=== PATIENT | male | born 1935 | race Caucasian/White ===

== ENCOUNTER 2017-08-17 18:25 | Inpatient (IN) | payer MEDICARE ==
[~2017-08-17] VITALS: Ht 182.9 cm; Wt 74.4 kg
[2017-08-17 18:31] VITALS: BP 116/63; PULSE 78; RESP 19; TEMP 98.5; O2SAT 98
[2017-08-17] MEDS ORDERED: NORV2.5T PO (18:35)
[2017-08-17] MEDS ORDERED: OMEG100046 PO (18:35)
[2017-08-17] MEDS ORDERED: ATOR10TA15 PO (18:35)
[2017-08-17] MEDS ORDERED: ASPI-516 PO (18:35)
[2017-08-17] MEDS ORDERED: LISI20TA PO (18:35)
[2017-08-17 18:39] VITALS: BP 116/63; O2SAT 96
--- NOTE | 2017-08-17 18:42 | PD ---
HPI Chief Complaint: Suicide Ideation/Attempt Time Seen by Provider: 18:35 Travel History International Travel<30 days: No Contact w/Intl Traveler<30days: No Traveled to known affect area: No History of Present Illness HPI 82-year-old male with PMH of HTN, CAD status post pacemaker insertion presents to the ED via EMS under Kaye act for evaluation of suicidal ideation. According to the Kaye act paper work the patient made several wounds to his abdomen with a kitchen knife after an argument with his [id number]. On arrival the patient states that he has had "a lot" to drink today. He states that he had an argument with his [id number] and he endorses using a kitchen knife to make several small wounds in his abdominal skin. He denies suicidal or homicidal ideation. He denies psychiatric history, previous psychiatric hospitalization or previous suicide attempt. He denies somatic complaints. He is intoxicated but cooperative and answers questions appropriately. It is noted that the patient was tasered after he refused to drop the knife when the police arrived on scene. EMS showed me a picture of the knife which was less than a finger's width wide, non-serrated. PFSH Social History Tobacco Use: No Allergies-Medications (Allergen,Severity, Reaction): Coded Allergies: No Known Allergies (Verified Allergy, Unknown, 08/17/17) Reported Meds & Prescriptions Reported Meds & Active Scripts Active Reported Fish Oil 1,000 mg Softgel ([place]-3/Dha/Epa/Fish Oil) 1,000 Mg (120 Mg-180 Mg) Capsule 1 Tab PO DAILY Aspirin 81 Mg Chew 81 Mg PO DAILY Norvasc (Amlodipine Besylate) 2.5 Mg Tab 2.5 Mg PO DAILY Atorvastatin (Atorvastatin Calcium) 10 Mg Tab 10 Mg PO HS Lisinopril-Hctz 20-12.5 Mg Tab 1 Tab PO DAILY Review of Systems Except as stated in HPI: all other systems reviewed are Neg Physical Exam Narrative GENERAL: Well-nourished, well-developed, intoxicated white male in no acute distress. PSYCHIATRIC: No delusional thought processes. No hallucinations. Cooperative. Calm. SKIN: Focused skin assessment warm/dry. Multiple very superficial pinprick wounds of the abdomen. The largest is 0.25 cm wide and penetrates to the depth of 0.15 cm. Pacemaker in the left chest. Surgical wound well-healed without signs of infection. HEAD: Normocephalic. Atraumatic. EYES: No scleral icterus. No injection or drainage. PERRLA EOMI. NECK: Supple, trachea midline. No JVD or lymphadenopathy. CARDIOVASCULAR: Regular rate and rhythm without murmurs, gallops, or rubs. RESPIRATORY: Breath sounds clear and equal bilaterally. No accessory muscle use. GASTROINTESTINAL: Abdomen soft, non-tender, nondistended. Active bowel sounds. MUSCULOSKELETAL: No cyanosis, or edema. Moves extremities spontaneously. BACK: Nontender without obvious deformity. No CVA tenderness. Data Data Last Documented VS Vital Signs Date Time Temp Pulse Resp B/P (MAP) Pulse Ox O2 Delivery O2 Flow Rate FiO2 08/17/17 18:39 116/63 (80) 96 08/17/17 18:31 98.5 78 19 Orders Orders Complete Blood Count With Diff (08/17/17 18:36) Comprehensive Metabolic Panel (08/17/17 18:36) Thyroid Stimulating Hormone (08/17/17 18:36) Urinalysis - C+S If Indicated (08/17/17 18:36) Electrocardiogram (08/17/17 18:36) Oximetry (08/17/17 18:36) Iv Access Insert/Monitor (08/17/17 18:36) Ecg Monitoring (08/17/17 18:36) Psych Screen (08/17/17 18:36) Drug Screen, Random Urine (08/17/17 18:36) Alcohol (Ethanol) (08/17/17 18:36) Tetanus/Diphtheria Tox Adult (Tetanus/Di (08/17/17 18:45) Labs Laboratory Tests Test 08/17/17 18:40 08/17/17 18:45 08/17/17 19:40 Blood Urea Nitrogen 11 MG/DL Creatinine 0.80 MG/DL Random Glucose 91 MG/DL Total Protein 6.4 GM/DL Albumin 3.0 GM/DL Calcium Level 8.5 MG/DL Alkaline Phosphatase 104 U/L Aspartate Amino Transf (AST/SGOT) 33 U/L Alanine Aminotransferase (ALT/SGPT) 20 U/L Total Bilirubin 1.4 MG/DL Sodium Level 135 MEQ/L Potassium Level 4.7 MEQ/L Chloride Level 103 MEQ/L Carbon Dioxide Level 25.7 MEQ/L Anion Gap 6 MEQ/L Estimat Glomerular Filtration Rate 93 ML/MIN Thyroid Stimulating Hormone 3rd Gen 3.310 uIU/ML Ethyl Alcohol Level 185 MG/DL Urine Color LIGHT-YELLOW Urine Turbidity CLEAR Urine pH 5.5 Urine Specific [place] 1.005 Urine Protein NEG mg/dL Urine Glucose (UA) NEG mg/dL Urine Ketones NEG mg/dL Urine Occult Blood NEG Urine Nitrite NEG Urine Bilirubin NEG Urine Urobilinogen LESS THAN 2.0 MG/DL Urine Leukocyte Esterase NEG Urine RBC LESS THAN 1 /hpf Urine WBC 1 /hpf Urine Mucus FEW /lpf Microscopic Urinalysis Comment CULT NOT INDICATED Urine Opiates Screen NEG Urine Barbiturates Screen NEG Urine Amphetamines Screen NEG Urine Benzodiazepines Screen NEG Urine Cocaine Screen NEG Urine Cannabinoids Screen NEG White Blood Count 11.1 TH/MM3 Red Blood Count 4.97 MIL/MM3 Hemoglobin 14.6 GM/DL Hematocrit 42.7 % Mean Corpuscular Volume 85.8 FL Mean Corpuscular Hemoglobin 29.4 PG Mean Corpuscular Hemoglobin Concent 34.3 % Red Cell Distribution Width 13.8 % Platelet Count 193 TH/MM3 Mean Platelet Volume 7.9 FL Neutrophils (%) (Auto) 82.8 % Lymphocytes (%) (Auto) 8.0 % Monocytes (%) (Auto) 7.2 % Eosinophils (%) (Auto) 1.1 % Basophils (%) (Auto) 0.9 % Neutrophils # (Auto) 9.2 TH/MM3 Lymphocytes # (Auto) 0.9 TH/MM3 Monocytes # (Auto) 0.8 TH/MM3 Eosinophils # (Auto) 0.1 TH/MM3 Basophils # (Auto) 0.1 TH/MM3 CBC Comment DIFF FINAL Differential Comment MDM Medical Decision Making Medical Screen Exam Complete: Yes Emergency Medical Condition: Yes Differential Diagnosis Substance-induced mood disorder versus acute alcohol intoxication versus need for tetanus immunization versus inflicted abdominal wound versus other Narrative Course 82-year-old male with PMH of HTN, CAD s/p pacemaker insertion presents to the ED via EMS under Kaye act for evaluation of suicidal ideation. According to the Kaye act paper work the patient made several wounds to his abdomen with a kitchen knife after an argument with his [id number]. On arrival the patient states that he has had "a lot" to drink today. He denies SI, HI. He denies psychiatric history, previous psychiatric hospitalization or previous suicide attempt. He denies somatic complaints. He is intoxicated but cooperative and answers questions appropriately. He was tasered by [employer] on scene after he refused to drop the knife. EMS showed me a picture of the knife which was less than a finger's width wide, non-serrated. Vitals reviewed. On exam there are multiple pinpoint superficial lacerations on the abdominal wall. The largest of these is 0.20 cm. Exam otherwise unremarkable. The wounds were cleaned and dressed by the nursing staff. Tetanus immunization was updated. EKG rate 69, sinus rhythm with first-degree AV block. Normal axis. No acute ST changes. Reviewed by Dr. Dasilva. Tox screen negative. Alcohol 185 UA: No culture indicated No concerning abnormalities of the CBC or CMP. The patient is stable and medically cleared for psychiatric evaluation. Virginia Evans Aug 17, 2017 18:42
[2017-08-17] MEDS ORDERED: TETANUS/DIPHTHERIA TOXOID ADULT 0.5 ML VIAL IM ONE (18:45)
[2017-08-17 19:07] LABS: BILIRUBIN, URINE NEG (NEG); BLOOD, URINE NEG (NEG); GLUCOSE,URINE NEG (NEG); KETONE, URINE NEG (NEG); MUCUS URINE FEW /lpf (OCC); NITRITE,URINE NEG (NEG); PH, URINE 5.5 (5.0-8.5); URINE COLOR LIGHT-YELLOW (YELLW/STRAW); URINE LEUKOCYTE ESTERASE NEG (NEG)
[2017-08-17 19:21] LABS: ALT (GPT) 20 U/L (12-78)
[2017-08-17 19:29] LABS: AST (GOT) 33 U/L (15-37); BICARBONATE 25.7 MEQ/L (21.0-32.0); BLOOD UREA NITROGEN 11 MG/DL (7-18); CALCIUM 8.5 MG/DL (8.5-10.1); CHLORIDE 103 MEQ/L (98-107); GLOMERULAR FILTRATION RATE 93 ML/MIN (>89); GLUCOSE,RANDOM 91 MG/DL (74-106); SODIUM (NA) 135 MEQ/L (136-145)
[2017-08-17 19:31] LABS: ALKALINE PHOSPHATASE 104 U/L (45-117); TOTAL BILIRUBIN ADULT 1.4 MG/DL (0.2-1.0); TOTAL PROTEIN 6.4 GM/DL (6.4-8.2)
[2017-08-17 20:30] LABS: AUTOMATED NEUTROPHIL # 9.2 TH/MM3 (1.8-7.7); BASOPHIL # 0.1 TH/MM3 (0-0.2); BASOPHIL % 0.9 % (0.0-2.0); EOSINOPHIL # 0.1 TH/MM3 (0-0.4); EOSINOPHIL % 1.1 % (0.0-4.0); HEMATOCRIT 42.7 % (39.0-51.0); HEMOGLOBIN 14.6 GM/DL (13.0-17.0); LYMPHOCYTE # 0.9 TH/MM3 (1.0-4.8); MEAN CELL VOLUME 85.8 FL (80.0-100.0); MEAN CORPUSCULAR HEMOGLOBIN 29.4 PG (27.0-34.0); MEAN CORPUSCULAR HGB CONC 34.3 % (32.0-36.0); MEAN PLATELET VOLUME 7.9 FL (7.0-11.0); MONO % 7.2 % (0.0-8.0); MONOCYTE # 0.8 TH/MM3 (0-0.9); NEUT % 82.8 % (16.0-70.0); PLATELET COUNT 193 TH/MM3 (150-450); RED BLOOD COUNT 4.97 MIL/MM3 (4.50-5.90); RED CELL DISTRIBUTION WIDTH 13.8 % (11.6-17.2); WHITE BLOOD COUNT 11.1 TH/MM3 (4.0-11.0)
--- NOTE | 2017-08-17 21:08 | EKG ---
Date Performed: 08/17/2017 Time Performed: 18:37:51 PTAGE: 82 years EKG: Sinus rhythm WITH SINUS ARRHYTHMIA WITH FIRST DEGREE AV BLOCK SEPTAL MYOCARDIAL INFARCTION ABNORMAL ECG NO PREVIOUS TRACING DOCTOR: Josue Tinoco Interpretating Date/Time 08/17/2017 21:06:52
[2017-08-17] MEDS ORDERED: ACETAMINOPHEN 325 MG TAB PO PRN (22:00)
[2017-08-17] MEDS ORDERED: MAGNESIUM HYDROXIDE SUSP 30 ML CUP PO PRN (22:00)
[2017-08-17] MEDS ORDERED: LORazepam 2 MG TAB PO PRN (22:00)
[2017-08-17] MEDS ORDERED: FLUMAZENIL 0.5 MG/5 ML VIAL IV PUSH PRN (22:00)
[2017-08-17] MEDS ORDERED: NICOTINE 21 MG/24 HR PATCH T-DERMAL PRN (22:00)
[2017-08-17] MEDS ORDERED: ALUMINUM/MAGNESIUM/SIMETH 30 ML CUP PO PRN (22:00)
[2017-08-17] MEDS ORDERED: LORazepam 2 MG/ML VIAL IV PUSH PRN ×4 (22:00)
[2017-08-17] MEDS ORDERED: LORazepam 1 MG TAB PO PRN (22:00)
[2017-08-17 23:30] VITALS: BP 141/71; PULSE 75; RESP 18; TEMP 97.7; O2SAT 96
[2017-08-18 05:40] VITALS: BP 150/71; PULSE 74; RESP 18; TEMP 97.9
[2017-08-18] MEDS: LISINOPRIL 20 MG TAB PO SCH (08:18)
[2017-08-18] MEDS: FOLIC ACID 1 MG TAB PO SCH (08:18)
[2017-08-18] MEDS: ASPIRIN 81 MG CHEW TAB PO SCH (08:18)
[2017-08-18] MEDS: THIAMINE HCL 100 MG TAB PO SCH (08:18)
[2017-08-18] MEDS: HYDROCHLOROTHIAZIDE 25 MG TAB PO SCH (08:18)
[2017-08-18] MEDS: amLODIPine BESYLATE 5 MG TAB PO SCH (08:18)
[2017-08-18] MEDS: REMOVE OLD NICODERM (NICOTINE) PATCH T-DERMAL SCH (08:19)
[2017-08-18 08:48] LABS: AUTOMATED NEUTROPHIL # 9.1 TH/MM3 (1.8-7.7); BASOPHIL # 0.1 TH/MM3 (0-0.2); BASOPHIL % 0.5 % (0.0-2.0); EOSINOPHIL # 0.1 TH/MM3 (0-0.4); EOSINOPHIL % 0.9 % (0.0-4.0); HEMATOCRIT 47.2 % (39.0-51.0); HEMOGLOBIN 16.1 GM/DL (13.0-17.0); LYMPH % 8.3 % (9.0-44.0); LYMPHOCYTE # 0.9 TH/MM3 (1.0-4.8); MEAN CELL VOLUME 85.5 FL (80.0-100.0); MEAN CORPUSCULAR HEMOGLOBIN 29.2 PG (27.0-34.0); MEAN CORPUSCULAR HGB CONC 34.1 % (32.0-36.0); MEAN PLATELET VOLUME 8.2 FL (7.0-11.0); MONO % 7.8 % (0.0-8.0); MONOCYTE # 0.9 TH/MM3 (0-0.9); NEUT % 82.5 % (16.0-70.0); PLATELET COUNT 218 TH/MM3 (150-450); RED BLOOD COUNT 5.52 MIL/MM3 (4.50-5.90); RED CELL DISTRIBUTION WIDTH 14.2 % (11.6-17.2)
[2017-08-18] MEDS ORDERED: OMEGA PO SCH (09:00)
[2017-08-18] MEDS ORDERED: FISH OIL PO SCH (09:00)
[2017-08-18] MEDS ORDERED: EPA PO SCH (09:00)
[2017-08-18] MEDS ORDERED: DHA PO SCH (09:00)
[2017-08-18] MEDS ORDERED: NON-FORMULARY DRUG (Lisinopril-Hctz 1 TAB) PO SCH (09:00)
[2017-08-18 09:25] LABS: BLOOD UREA NITROGEN 11 MG/DL (7-18); CALCIUM 9.4 MG/DL (8.5-10.1); CHLORIDE 102 MEQ/L (98-107); CHOLESTEROL 122 MG/DL (120-200); CHOLESTEROL/ HDL RATIO 1.75 RATIO; CREATININE 0.62 MG/DL (0.60-1.30); GLOMERULAR FILTRATION RATE 125 ML/MIN (>89); GLUCOSE,RANDOM 76 MG/DL (74-106); HDL CHOLESTEROL 69.4 MG/DL (40.0-60.0); LDL CHOLESTEROL 42 MG/DL (0-99); SODIUM (NA) 138 MEQ/L (136-145); TRIGLYCERIDES 52 MG/DL (42-150)
--- NOTE | 2017-08-18 09:28 | PD.CONS ---
HPI Service [facility] Hospitalists Consult Requested By Dr Paula Reason for Consult medical management Primary Care Physician Non-Staff Diagnoses: History of Present Illness 82-year-old male with PMH of HTN, CAD status post pacemaker insertion presents to the ED via EMS under Kaye act for evaluation of suicidal ideation. According to the Kaye act paper work the patient made several wounds to his abdomen with a kitchen knife after an argument with his [id number]. On arrival the patient stated that he has had "a lot" to drink. He stated that he had an argument with his [id number] and he endorses using a kitchen knife to make several small wounds in his abdominal skin. He denies suicidal or homicidal ideation. He denies psychiatric history, previous psychiatric hospitalization or previous suicide attempt. He denies somatic complaints. He is intoxicated but cooperative and answers questions appropriately. It is noted that the patient was tasered after he refused to drop the knife when the police arrived on scene. EMS showed a picture of the knife which was less than a finger's width wide, non-serrated. Patient is in the chair he appears in nad. No n/v/d/c. Had diarrhea yesterday none today. Eating well. He has no complaints at this time. Denies any cp, sob. No fever or chills. No tremors, no signs of alcohol withdrawals. Says she feel better and would like to go home. Says he will never do such a thing again. Review of Systems Except as stated in HPI: all other systems reviewed are Neg Past Family Social History Allergies: Coded Allergies: No Known Allergies (Verified Allergy, Unknown, 08/17/17) Past Medical History HTN, HLD, CAD, PM placement Past Surgical History none Reported Medications Reported Meds & Active Scripts Active Reported Fish Oil 1,000 mg Softgel ([place]-3/Dha/Epa/Fish Oil) 1,000 Mg (120 Mg-180 Mg) Capsule 1 Tab PO DAILY Aspirin 81 Mg Chew 81 Mg PO DAILY Norvasc (Amlodipine Besylate) 2.5 Mg Tab 2.5 Mg PO DAILY Atorvastatin (Atorvastatin Calcium) 10 Mg Tab 10 Mg PO HS Lisinopril-Hctz 20-12.5 Mg Tab 1 Tab PO DAILY Family History father with heart problems Social History EtOH use 3 glasses of wine daily and occasionally bears, no hard liquor No tobacco use or illicit drug use Physical Exam Vital Signs Vital Signs Date Time Temp Pulse Resp B/P (MAP) Pulse Ox O2 Delivery O2 Flow Rate FiO2 08/18/17 05:40 97.9 74 18 150/71 (97) 08/17/17 23:30 97.7 75 18 141/71 (94) 96 08/17/17 23:00 08/17/17 18:39 116/63 (80) 96 08/17/17 18:31 98.5 78 19 116/63 (80) 98 Physical Exam GENERAL: This is a well-nourished, well-developed patient, in no apparent distress. SKIN: Multiple very superficial pinprick wounds of the abdomen. The largest is 0.25 cm wide and penetrates to the depth of 0.15 cm. Pacemaker in the left chest. Surgical wound well-healed without signs of infection. HEAD: Atraumatic. Normocephalic. No temporal or scalp tenderness. EYES: Pupils equal round and reactive. Extraocular motions intact. No scleral icterus. No injection or drainage. ENT: Nose without bleeding, purulent drainage or septal hematoma. Throat without erythema, tonsillar hypertrophy or exudate. Uvula midline. Airway patent. NECK: Trachea midline. No JVD or lymphadenopathy. Supple, nontender, no meningeal signs. CARDIOVASCULAR: Regular rate and rhythm without murmurs, gallops, or rubs. RESPIRATORY: Clear to auscultation. Breath sounds equal bilaterally. No wheezes , rales, or rhonchi. GASTROINTESTINAL: Abdomen soft, non-tender, nondistended. No hepato-splenomegaly , or palpable masses. No guarding. MUSCULOSKELETAL: Extremities without clubbing, cyanosis, or edema. No joint tenderness, effusion, or edema noted. No calf tenderness. Negative Homans sign bilaterally. NEUROLOGICAL: Awake and alert. Cranial nerves II through XII intact. Motor and sensory grossly within normal limits. Five out of 5 muscle strength in all muscle groups. Normal speech. Laboratory Laboratory Tests Test 08/17/17 18:40 08/17/17 18:45 08/17/17 19:40 08/18/17 08:05 Blood Urea Nitrogen 11 Creatinine 0.80 Random Glucose 91 Total Protein 6.4 Albumin 3.0 Calcium Level 8.5 Alkaline Phosphatase 104 Aspartate Amino Transf (AST/SGOT) 33 Alanine Aminotransferase (ALT/SGPT) 20 Total Bilirubin 1.4 Sodium Level 135 Potassium Level 4.7 Chloride Level 103 Carbon Dioxide Level 25.7 Anion Gap 6 Estimat Glomerular Filtration Rate 93 Thyroid Stimulating Hormone 3rd Gen 3.310 Ethyl Alcohol Level 185 Urine Color LIGHT-YELLOW Urine Turbidity CLEAR Urine pH 5.5 Urine Specific [place] 1.005 Urine Protein NEG Urine Glucose (UA) NEG Urine Ketones NEG Urine Occult Blood NEG Urine Nitrite NEG Urine Bilirubin NEG Urine Urobilinogen LESS THAN 2.0 Urine Leukocyte Esterase NEG Urine RBC LESS THAN 1 Urine WBC 1 Urine Mucus FEW Microscopic Urinalysis Comment CULT NOT INDICATED Urine Opiates Screen NEG Urine Barbiturates Screen NEG Urine Amphetamines Screen NEG Urine Benzodiazepines Screen NEG Urine Cocaine Screen NEG Urine Cannabinoids Screen NEG White Blood Count 11.1 11.0 Red Blood Count 4.97 5.52 Hemoglobin 14.6 16.1 Hematocrit 42.7 47.2 Mean Corpuscular Volume 85.8 85.5 Mean Corpuscular Hemoglobin 29.4 29.2 Mean Corpuscular Hemoglobin Concent 34.3 34.1 Red Cell Distribution Width 13.8 14.2 Platelet Count 193 218 Mean Platelet Volume 7.9 8.2 Neutrophils (%) (Auto) 82.8 82.5 Lymphocytes (%) (Auto) 8.0 8.3 Monocytes (%) (Auto) 7.2 7.8 Eosinophils (%) (Auto) 1.1 0.9 Basophils (%) (Auto) 0.9 0.5 Neutrophils # (Auto) 9.2 9.1 Lymphocytes # (Auto) 0.9 0.9 Monocytes # (Auto) 0.8 0.9 Eosinophils # (Auto) 0.1 0.1 Basophils # (Auto) 0.1 0.1 CBC Comment DIFF FINAL DIFF FINAL Differential Comment Result Diagram: 08/18/17 0805 08/17/17 1840 Assessment and Plan Assessment and Plan 82-year-old male with PMH of HTN, CAD s/p pacemaker insertion presents to the ED via EMS under Kaye act for evaluation of suicidal ideation. According to the Kaye act paper work the patient made several wounds to his abdomen with a kitchen knife after an argument with his [id number]. On exam there are multiple pinpoint superficial lacerations on the abdominal wall. The largest of these is 0.20 cm. Tetanus immunization was updated. Suicidal attempt management per psych Multiple superficial abdominal wounds , wound care Alcohol use monitor for withdrawals CIWA protocol, MVT/thiamine /folate EKG rate 69, sinus rhythm with first-degree AV block. Normal axis. No acute ST changes. Reviewed by Dr. Dasilva. Tox screen negative. Alcohol level 185 on admission UA: No culture indicated CBC and CMP fairly normal HTN, HLD, CAD, PM placement. Stable. Continue home meds as appropriate. Monitor VS Discussed Condition With pt, nurse Cheryl Ng MD Aug 18, 2017 09:28
[2017-08-18 12:22] LABS: HEMOGLOBIN A1C 5.9 % (4.3-6.0)
--- NOTE | 2017-08-18 15:19 | HHI.HP ---
Provisional Diagnosis Admission Date Aug 17, 2017 at 21:47 [place] I. 1. Adjustment disorder with disturbance of conduct 2. Alcohol intoxication, now resolved [place] II. Deferred Certification of Person's Competence To Provide Express and Informed Consent I have personally examined Justin Lyman , a person being served at [facility] [[email or web address]] on, Aug 18, 2017 15:19. Express and informed consent means consent voluntarily given in writing, by a competent person, after sufficient explanation and disclosure of the subject matter involved to enable the person to make a knowing and willful decision without any element of force, fraud, deceit, duress, or other form of constraint or coercion. This person is 18 years of age or older, is not now known to be incompetent to consent to treatment with a guardian advocate, and does not have a health care surrogate or proxy currently making medical treatment decisions. I have found this person to be one of the following: [x] Competent to provide express and informed consent, as defined above, for voluntary admission to this facility and is competent to provide express and informed consent for treatment. He/she has the consistent capacity to make well reasoned, willful, and knowing decisions concerning his or her medical or mental health treatment. The person fully and consistently understands the purpose of the admission for examination/placement and is fully capable of personally exercising all rights assured under [place] Incompetent to provide express and informed consent to voluntary admission, and this is incompetent to provide express and informed consent to treatment. The person must be transferred to involuntary status and a petition for a guardian advocate filed with the Circuit Court. [] Refusing to provide express and informed consent to voluntary admission but is competent to provide express and informed consent for treatment. The person must be discharged or transferred to involuntary status. Form shall be completed within 24 hours of a person's arrival at the receiving facility and filed in the clinical record of each person: 1. Admitted on a voluntary basis 2. Permitted to provide express and informed consent to his/her own treatment 3. Allowed to transfer from involuntary to voluntary status 4. Prior to permitting a person to consent to his or her own treatment after having been previously found incompetent to consent to treatment. History of Present Illness Capacity: Has Capacity Psych Chief Complaint: Self-injurious behavior HPI Mr. Lyman is an 82-year-old male with no reported past psychiatric history who presents under a Kaye act by law enforcement alleging that the officer found the patient sitting on a couch holding a kitchen knife to his abdomen. Of note , the patient's alcohol level was elevated on presentation here. Reviewing the electronic medical record it appears this is patient's first visit to [facility]. Patient seen and examined with nurse. Chart reviewed. Case discussed with nursing staff. No behavioral issues noted on the unit. No suicidality or homicidality. Patient is clinically sober at the time of my evaluation. He denies any suicidal or homicidal ideation, intent or plan on direct questioning now and contracts for safety. He says that he had a little too much to drink yesterday and was trying to pay his qbrwnd-do-vow Rosalie abdalla on the cleanliness of the house. He says that in his intoxicated state he inadvertently asked if someone had spent the night with her. An argument ensued , and the patient threatened to stab himself with a knife in the context of this argument. Patient is very remorseful for making this gesture. He says that it is markedly out of character for him to behave in this way. He does admit that he consumed alcohol to excess. I can elicit no depressive or hypomanic/manic symptoms presently. He denies any audiovisual hallucinations. I can elicit no delusional beliefs. There is no evidence of any impairment in reality construction. The remainder of the psychiatric ROS is negative. The patient has no physical complaints at this time. Although the patient would like to leave the hospital today of possible, he is willing to remain overnight if necessary to arrange for safety discharge. Past psychiatric history: The patient denies a history of psychiatric diagnosis. He denies a history of inpatient or outpatient psychiatric treatment. He denies a history of suicide attempts. He denies a history of violent behavior. Family history: Patient denies a family history of serious mental illness, substance use disorder or suicide. Chemical dependency history: The patient reports that he drinks 2 beers a day. Yesterday he had 3 mixed drinks and notes that they were especially strong. He denies any history of blackouts, DTs or seizures. His longest sober time from alcohol is on the order of weeks. Social history: The patient is from [place]. He and his niyijd-il-hkv have been staying in a [place] locally on vacation. He was 10 years ago. He has 10 children, 4 grandchildren and 1 great grandchild all living in [place]. He is high school educated. 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 He served in the [employer] for 6 years. He denies any legal history. He did have a hunting rifle and a pistol, and his son has secured these. Obtained collateral information from son Zen Lyman at [phone]. He has never known his father to engage in any sort of suicidal or violent behavior. Patient has no past psychiatric history but son is aware of, nor is there any family history. Son has no particular concerns regarding the patient being on ongoing risk of harm to himself or others, although son does note that patient has been away for several weeks and so son is not aware of recent mental state. Son reports that his sister Shauna is flying down tomorrow evening to bring patient back to [place]. Endeavored to obtain collateral from daughter Shauna Harvey at [phone] and [phone]. I have left generic voicemails at both of these numbers requesting a call back. Review of Systems Except as stated in HPI: all other systems reviewed are Neg Past Family Social History Coded Allergies: No Known Allergies (Verified Allergy, Unknown, 08/17/17) Past Medical History Patient reports a history of cardiac issues and GERD. Reported Medications [place]-3/Dha/Epa/Fish Oil (Fish Oil 1,000 mg Softgel) 1,000 Mg (120 Mg-180 Mg) Capsule, 1 TAB PO DAILY 08/17/17 Aspirin (Aspirin) 81 Mg Chew, 81 MG PO DAILY, TAB 0 Refills 08/17/17 Amlodipine (Norvasc) 2.5 Mg Tab, 2.5 MG PO DAILY for Blood Pressure Management, #30 TAB 0 Refills 08/17/17 Atorvastatin (Atorvastatin) 10 Mg Tab, 10 MG PO HS for Cholesterol Management, # 30 TAB 0 Refills 08/17/17 Lisinopril-Hctz (Lisinopril-Hctz) 20-12.5 Mg Tab, 1 TAB PO DAILY for Blood Pressure Management, #30 TAB 0 Refills 08/17/17 Current Medications Medications (Trade) Dose Ordered Sig/Beba Route Start Time Stop Time Status Last Admin (Tylenol) 650 mg Q4H PRN PO 08/17/17 22:00 (Milk Of Magnesia Liq) 30 ml DAILY PRN PO 08/17/17 22:00 (Mag-Al Plus Susp Liq) 30 ml Q6H PRN PO 08/17/17 22:00 (Habitrol 21 Mg Patch.24 Hr) 1 patch DAILY PRN T-DERMAL 08/17/17 22:00 (Romazicon Inj) 0.2 mg Q1M PRN IV PUSH 08/17/17 22:00 (Ativan) 1 mg Q4H PRN PO 08/17/17 22:00 (Ativan Inj) 1 mg Q4H PRN IV PUSH 08/17/17 22:00 (Ativan) 2 mg Q2H PRN PO 08/17/17 22:00 (Ativan Inj) 2 mg Q2H PRN IV PUSH 08/17/17 22:00 (Ativan Inj) 2 mg Q1H PRN IV PUSH 08/17/17 22:00 (Ativan Inj) 2 mg Q15M PRN IV PUSH 08/17/17 22:00 (Norvasc) 2.5 mg DAILY PO 08/18/17 09:00 08/18/17 08:18 (Aspirin Chew) 81 mg DAILY PO 08/18/17 09:00 08/18/17 08:18 (Lipitor) 10 mg HS PO 08/18/17 21:00 (Vitamin B1) 100 mg DAILY PO 08/18/17 09:00 08/18/17 08:18 (Folate) 1 mg DAILY PO 08/18/17 09:00 08/18/17 08:18 (Prinivil) 20 mg DAILY PO 08/18/17 09:00 08/18/17 08:18 (Hydrodiuril) 12.5 mg DAILY PO 08/18/17 09:00 08/18/17 08:18 Miscellaneous Information 1 DAILY T-DERMAL 08/18/17 09:00 Physical Exam Physical exam completed by the hospitalist men's custom hair piece consultant. On my examination today , the patient appears to be in no acute physical distress. No motor abnormalities noted. No signs of intoxication or withdrawal noted at this time. I do see a few very superficial scratches on the patient's lower abdomen. The patient has a pacemaker in place. Labs and vitals reviewed: Vital Signs Vital Signs Date Time Temp Pulse Resp B/P (MAP) Pulse Ox O2 Delivery O2 Flow Rate FiO2 08/18/17 05:40 97.9 74 18 150/71 (97) 08/17/17 23:30 96 I/O 08/18/17 08/18/17 08/19/17 08:00 16:00 00:00 Intake Total 360 ml Balance 360 ml Lab Results Item Value Date Time White Blood Count 11.0 TH/MM3 08/18/17 0805 Hemoglobin 16.1 GM/DL 08/18/17 0805 Platelet Count 218 TH/MM3 08/18/17 0805 Sodium Level 138 MEQ/L 08/18/17 0805 Potassium Level 3.6 MEQ/L # 08/18/17 0805 Chloride Level 102 MEQ/L 08/18/17 0805 Carbon Dioxide Level 26.0 MEQ/L 08/18/17 0805 Blood Urea Nitrogen 11 MG/DL 08/18/17 0805 Creatinine 0.62 MG/DL 08/18/17 0805 Estimat Glomerular Filtration Rate 125 ML/MIN 08/18/17 0805 Random Glucose 76 MG/DL 08/18/17 0805 Aspartate Amino Transf (AST/SGOT) 33 U/L 08/17/17 1840 Alanine Aminotransferase (ALT/SGPT) 20 U/L 08/17/17 1840 Alkaline Phosphatase 104 U/L 08/17/17 1840 Thyroid Stimulating Hormone 3rd Gen 3.310 uIU/ML 08/17/17 1840 Ethyl Alcohol Level 185 MG/DL H 08/17/17 1840 Urinalysis bland. Mental Status Examination Appearance: Appropriate Consciousness: Alert Orientation: x4 Motor Activity: Normal gait Speech: Unremarkable Language: Adequate Fund of Knowledge: Adequate Attention and Concentration: Adequate Memory: Unremarkable Mood: Appropriate Affect: Appropriate Thought Process & Associations: Intact, Logical, Linear Thought Content: Appropriate Hallucination Type: None Delusion Type: None Suicidal Ideation: No Suicidal Plan: No Suicidal Intention: No Homicidal Ideation: No Homicidal Plan: No Homicidal Intention: No Insight: Adequate Judgment: Adequate Mental Status Exam Remarks MMSE 27/30. Assessment & Plan Problem List: (1) Adjustment disorder with disturbance of conduct ICD Codes: F43.24 - Adjustment disorder with disturbance of conduct (2) Alcohol intoxication ICD Codes: F10.929 - Alcohol use, unspecified with intoxication, unspecified Assessment & Plan 82-year-old male with psychiatric history as detailed above presently admitted to the inpatient psychiatric unit under a Kaye act. On my examination today, the patient reports that he self injured in the setting of an argument with his ztvxba-ta-eia while intoxicated. Now that he is clinically sober, he denies any suicidal or homicidal ideation. There is no evidence of any unstable mental illness as defined under the Kaye act in this patient at this time. He admits that his consumption of alcohol yesterday evening was excessive and is agreeable to pursuing outpatient chemical dependency evaluation and, if indicated, treatment. Main concern presently is whether there is a safe discharge plan in place. Patient does not have a garcia to the condo he was sharing with Rosalie, and it is unclear whether she is willing to accept him back at any rate. Daughter Shauna will reportedly be here tomorrow evening to have the patient return home to [place]. The patient is agreeable to remaining on the inpatient unit overnight to allow for safe discharge. I will plan to admit the patient for this purpose. Admit inpatient. Voluntary status. I will resume general medical medications. Hospitalist consult with further medication adjustments as per the hospitalist. No scheduled psychotropics at this time. CIWA scale with Ativan for the management of any withdrawal. Seizure precautions. PT eval. Falls precautions. Vitals every shift. Counselor to see. Collateral from daughter. Disposition planning. Estimated length of stay: 2-3 days. Request HC Surrog/Guard Advoc?: No Gary Paula MD Aug 18, 2017 15:19
[2017-08-18 18:12] VITALS: BP 138/64; PULSE 90; RESP 18; TEMP 97.8; O2SAT 96
[2017-08-18] MEDS ORDERED: ATORVASTATIN 10 MG TAB PO SCH (21:00)
[2017-08-19 06:00] VITALS: BP 128/71; PULSE 72; RESP 18; TEMP 97.8; O2SAT 94
[2017-08-19] MEDS: LISINOPRIL 20 MG TAB PO SCH (08:19)
[2017-08-19] MEDS: amLODIPine BESYLATE 5 MG TAB PO SCH (08:19)
[2017-08-19] MEDS: ASPIRIN 81 MG CHEW TAB PO SCH (08:19)
[2017-08-19] MEDS: THIAMINE HCL 100 MG TAB PO SCH (08:19)
[2017-08-19] MEDS: FOLIC ACID 1 MG TAB PO SCH (08:19)
[2017-08-19] MEDS: HYDROCHLOROTHIAZIDE 25 MG TAB PO SCH (08:19)
[2017-08-19] MEDS: REMOVE OLD NICODERM (NICOTINE) PATCH T-DERMAL SCH (09:00)
--- NOTE | 2017-08-19 11:31 | HHI.DS ---
Psychiatry Discharge Summary Inpatient Psychiatric care?: Yes Advance Directive: Yes Mental Health AdvanceDirective: No Health Care Proxy: No Admission Admission Date Aug 17, 2017 at 21:47 Admission Diagnosis: (1) Adjustment disorder with disturbance of conduct ICD Code: F43.24 - Adjustment disorder with disturbance of conduct (2) Alcohol intoxication ICD Code: F10.929 - Alcohol use, unspecified with intoxication, unspecified Brief History Mr. Lyman is an 82-year-old male with no reported past psychiatric history who presents under a Kaye act by law enforcement alleging that the officer found the patient sitting on a couch holding a kitchen knife to his abdomen. Of note , the patient's alcohol level was elevated on presentation here. Reviewing the electronic medical record it appears this is patient's first visit to [facility]. Patient seen and examined with nurse. Chart reviewed. Case discussed with nursing staff. No behavioral issues noted on the unit. No suicidality or homicidality. Patient is clinically sober at the time of my evaluation. He denies any suicidal or homicidal ideation, intent or plan on direct questioning now and contracts for safety. He says that he had a little too much to drink yesterday and was trying to pay his efedkd-tn-ehk Rosalie abdalla on the cleanliness of the house. He says that in his intoxicated state he inadvertently asked if someone had spent the night with her. An argument ensued , and the patient threatened to stab himself with a knife in the context of this argument. Patient is very remorseful for making this gesture. He says that it is markedly out of character for him to behave in this way. He does admit that he consumed alcohol to excess. I can elicit no depressive or hypomanic/manic symptoms presently. He denies any audiovisual hallucinations. I can elicit no delusional beliefs. There is no evidence of any impairment in reality construction. The remainder of the psychiatric ROS is negative. The patient has no physical complaints at this time. Although the patient would like to leave the hospital today of possible, he is willing to remain overnight if necessary to arrange for safety discharge. Past psychiatric history: The patient denies a history of psychiatric diagnosis. He denies a history of inpatient or outpatient psychiatric treatment. He denies a history of suicide attempts. He denies a history of violent behavior. Family history: Patient denies a family history of serious mental illness, substance use disorder or suicide. Chemical dependency history: The patient reports that he drinks 2 beers a day. Yesterday he had 3 mixed drinks and notes that they were especially strong. He denies any history of blackouts, DTs or seizures. His longest sober time from alcohol is on the order of weeks. Social history: The patient is from [place]. He and his jwfeyo-nu-hkm have been staying in a condo locally on vacation. He was 10 years ago. He has 10 children, 4 grandchildren and 1 great grandchild all living in [place]. He is high school educated. 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 He served in the [employer] for 6 years. He denies any legal history. He did have a hunting rifle and a pistol, and his son has secured these. Obtained collateral information from son Zen Lyman at [phone]. He has never known his father to engage in any sort of suicidal or violent behavior. Patient has no past psychiatric history but son is aware of, nor is there any family history. Son has no particular concerns regarding the patient being on ongoing risk of harm to himself or others, although son does note that patient has been away for several weeks and so son is not aware of recent mental state. Son reports that his sister Shauna is flying down tomorrow evening to bring patient back to [place]. Endeavored to obtain collateral from daughter Shauna Harvey at [phone] and [phone]. I have left generic voicemails at both of these numbers requesting a call back. Tobacco Use In Past 30 Days: No Tobacco Past 30 Days Alcohol Use: 4 or More Times Per Week Hospital Course Patient's hospital course was uneventful he had no problems with behavior. No signs of withdrawal noted. Slept well. Did mingle in both the other patients and staff. Patient seen by me today he is alert oriented calm cooperative denying past psychiatric contact or hospitalizations psychotropic medications. Did some minimization of his alcohol use states he drank either beer or 2 daily or glass of [employer] and water daily. He denied any legal issues detox or rehabilitation with alcohol. Denied any other drugs. Lives communication with both patient's daughter in [place] and his ubikxw-ly-qzm here locally. Sister-in- law feels comfortable with him coming to stay with her until the daughter comply down from [place]. Patient is willing to do this also to commitment to absolute abstinence. Patient denies suicidality homicidality voices or visions. At this time patient does not meet criteria for continued inpatient psychiatric hospitalization thus I'll allow patient to be discharged to his obrrfd-au-mqs, no Rx by me, he may continue his own home prescribed medications. Follow-up with his PCP in [place] or if he has difficulties here he may return here to our ED Results Blood Pressure 128 / 71 Vital Signs Date Time Temp Pulse Resp B/P (MAP) Pulse Ox O2 Delivery O2 Flow Rate FiO2 08/19/17 06:00 97.8 72 18 128/71 (90) 94 Laboratory Tests Test 08/17/17 18:40 08/17/17 18:45 08/17/17 19:40 08/18/17 08:05 Albumin 3.0 GM/DL (3.4-5.0) Total Bilirubin 1.4 MG/DL (0.2-1.0) Sodium Level 135 MEQ/L (136-145) Ethyl Alcohol Level 185 MG/DL (0-5) Urine Mucus FEW /lpf (OCC) White Blood Count 11.1 TH/MM3 (4.0-11.0) Neutrophils (%) (Auto) 82.8 % (16.0-70.0) 82.5 % (16.0-70.0) Lymphocytes (%) (Auto) 8.0 % (9.0-44.0) 8.3 % (9.0-44.0) Neutrophils # (Auto) 9.2 TH/MM3 (1.8-7.7) 9.1 TH/MM3 (1.8-7.7) Lymphocytes # (Auto) 0.9 TH/MM3 (1.0-4.8) 0.9 TH/MM3 (1.0-4.8) HDL Cholesterol 69.4 MG/DL (40.0-60.0) Laboratory Results Test 08/18/17 08:05 Cholesterol Level 122 MG/DL (120-200) HDL Cholesterol 69.4 MG/DL (40.0-60.0) Hemoglobin A1c 5.9 % (4.3-6.0) LDL Cholesterol 42 MG/DL (0-99) Triglycerides Level 52 MG/DL (42-150) Summary of Procedures None done Pending results at discharge: No Medications # of Antipsychotic meds at D/C: 0 Approp Antipsych med options 1 - Minimum of three failed multiple trials of monotherapy. 2 - Documented plan to taper to monotherapy due to previous use of multiple meds OR cross-taper in progress at D/C. 3 - Documentation of augmentation of Clozapine. 4 - Justification other than those listed in allowable values 1-3, document here : Discharge Discharge Date: Aug 19, 2017 Discharge Diagnosis: (1) Adjustment disorder with disturbance of conduct Diagnosis: Principal ICD Code: F43.24 - Adjustment disorder with disturbance of conduct (2) Alcohol intoxication Diagnosis: Secondary ICD Code: F10.929 - Alcohol use, unspecified with intoxication, unspecified Pt Condition on Discharge: Stable Discharge Disposition: Discharge Home Discharge Instructions Diet Instructions: As Tolerated, No Restrictions Activities you can perform: Regular-No Restrictions Scheduled Appointment: follow-up PCP in [place], otherwise if problems follow-up [facility] ED Discharge Time > 30 minutes Mental Status Examination Appearance: Appropriate Consciousness: Alert Orientation: x4 Motor Activity: Normal gait Speech: Unremarkable Language: Adequate Fund of Knowledge: Adequate Attention and Concentration: Adequate Memory: Unremarkable Mood: Appropriate Affect: Appropriate Thought Process & Associations: Intact, Logical, Linear Thought Content: Appropriate Hallucination Type: None Delusion Type: None Suicidal Ideation: No Suicidal Plan: No Suicidal Intention: No Homicidal Ideation: No Homicidal Plan: No Homicidal Intention: No Insight: Adequate Judgment: Adequate Discharge/Advance Care Plan Health Problems: (1) Adjustment disorder with disturbance of conduct (2) Alcohol intoxication Goals to promote your health * To prevent worsening of your condition and complications * To maintain your health at the optimal level Directions to meet your goals Take your medications as prescribed Follow your dietary instruction Follow activity as directed Keep your appointments as scheduled Take your immunizations and boosters as scheduled If your symptoms worsen call your PCP, if no PCP go to Urgent Care Center or Emergency Room For 14/01 questions related to your inpatient stay or results of tests pending at discharge, please contact Dr. Curtis Lacy at Smoking is Dangerous to Your Health. Avoid second hand smoking Curtis Lacy MD Aug 19, 2017 11:31
== END 2017-08-19 15:15 | disposition home or self-care (01) | DRG 882 ==
LOC: NEPC 18:25 → NEDA 21:47 → H250 08-18
PROVIDERS: ADMIT Psychiatry & Neurology Psychiatry; ATTEND Psychiatry & Neurology Psychiatry
DX: F43.24 Adjustment disorder with disturbance of conduct (principal); R45.851 Suicidal ideations; I10 Essential (primary) hypertension; F10.120 Alcohol abuse with intoxication, uncomplicated; Y90.6 Blood alcohol level of 120-199 mg/100 ml; I25.10 Atherosclerotic heart disease of native coronary artery without angina pectoris; E78.5 Hyperlipidemia, unspecified; K21.9 Gastro-esophageal reflux disease without esophagitis; I44.0 Atrioventricular block, first degree; Z95.0 Presence of cardiac pacemaker
CPT/HCPCS: 80048; 80053; 80061; 80307; 81001; 83036; 84443; 85025; 90471; 90714; 93005